=== PATIENT | female | born 1990 | race Caucasian/White ===

== ENCOUNTER 2017-02-25 12:36 | Emergency (ER) | payer MEDICAID ==
[2017-02-25 12:43] VITALS: BP 127/79; PULSE 99; RESP 16; TEMP 98.5; O2SAT 100
--- NOTE | 2017-02-25 13:19 | ED PDOC ---
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 Vaginal bleeding assoc with lower abd cramping since this AM. LMP 01/30/2017. . No care yet for this .) Onset/Duration Of Symptoms: Days (1) Current Symptoms Are (Timing): Still Present Severity: Mild Quality Of Discomfort: Cramping Abnormal Vaginal Bleeding: Yes Past Medical History Vital Signs: Last Vital Signs Temp 98.5 F 02/25/17 12:40 Pulse 99 H 02/25/17 12:40 Resp 16 02/25/17 12:40 BP 127/79 02/25/17 12:40 Pulse Ox 100 02/25/17 12:40 - Medical History PMH: No Chronic Diseases - Family History Family History: States: Unknown Family Hx - Allergies Allergies/Adverse Reactions: Allergies Allergy/AdvReac Type Severity Reaction Status Date / Time No Known Allergies Allergy Verified 02/25/17 12:40 Review of Systems Gastrointestinal: Positive for: Abdominal Pain Genitourinary Female: Positive for: Vaginal Bleeding Musculoskeletal: Negative for: Back Pain Physical Exam - Physical Exam Appears: Positive for: Non-toxic, No Acute Distress Skin: Positive for: Normal Color, Warm, DRY Gastrointestinal/Abdominal: Positive for: Bowel Sounds, Soft. Negative for: Tenderness Pelvic Exam: Positive for: External Exam Normal, No Masses, Blood (Small amount of blood in vault. Cervix closed), Other ([facility] nurse [place]). Negative for : Tender Adnexa, Tender Uterus Extremity: Positive for: Normal ROM - Laboratory Results Result Diagrams: 02/25/17 13:39 02/25/17 13:39 - ECG O2 Sat by Pulse Oximetry: 100 Disposition - Clinical Impression Clinical Impression: Miscarriage - Patient ED Disposition Is Patient to be Admitted: No Comment: Results US and blood work and discharge instructions provided via chief of hospital medicine [id number] Counseled Patient/Family Regarding: Studies Performed, Diagnosis, Need For Followup, Rx Given - Disposition [facility] Disposition: Routine/Home Disposition Time: 15:05 Condition: FAIR Instructions: Threatened Miscarriage (ED) Forms: [facility] in [facility] (Irish)
[2017-02-25 13:47] LABS: BASO % 0.3 % (0.0-2.0); EOS % 0.6 % (0.0-4.0); HEMATOCRIT 39.1 % (34.0-47.0); LYMPH # 1.2 K/uL (1.0-4.3); LYMPH % 18.8 % (20.0-40.0); MEAN CELL VOLUME 87.4 fl (81.0-99.0); MEAN CORPUSCULAR HEMOGLOBIN 29.3 pg (27.0-31.0); MEAN CORPUSCULAR HGB CONC 33.5 g/dL (33.0-37.0); MEAN PLATELET VOLUME 8.1 fl (7.2-11.7); MONO # 0.5 K/uL (0.0-0.8); MONO % 8.6 % (0.0-10.0); NEUT # 4.6 K/uL (1.8-7.0); NEUT % 71.7 % (50.0-75.0); RED CELL DISTRIBUTION WIDTH 13.8 % (11.5-14.5); WHITE BLOOD COUNT 6.4 K/uL (4.8-10.8)
[2017-02-25 13:53] LABS: ALKALINE PHOSPHATASE 40 U/L (38-126); ALT/SGPT 34 U/L (9-52); AST/SGOT 19 U/L (14-36); BILIRUBIN,TOTAL 0.4 mg/dl (0.2-1.3); BLOOD UREA NITROGEN 7 mg/dl (7-17); CALCIUM 9.3 mg/dL (8.4-10.2); CARBON DIOXIDE 25 mmol/L (22-30); CHLORIDE 104 mmol/L (98-107); GFR AFRICAN-AMERICAN > 60; GLUCOSE,RANDOM 102 mg/dL (65-105); SODIUM 143 mmol/l (132-148); TOTAL PROTEIN 8.3 G/DL (6.3-8.2)
[2017-02-25 13:55] LABS: ALB/GLOB RATIO 1.4 (1.0-2.1)
--- NOTE | 2017-02-25 14:53 | US ---
HISTORY: r/o ectopic COMPARISON: None available. TECHNIQUE: Transvaginal FINDINGS: UTERUS: Measures 7.3 x 4.8 x 4.8 cm. Normal in size and appearance. 6 mm posterior myometrial cyst incidentally noted. ENDOMETRIUM: Measures 9 mm in diameter. Small amount of moderately echogenic fluid seen within the endometrial cavity. Consistent with known current vaginal bleeding. No intrauterine gestation identified. CERVIX: No cervical abnormality identified. RIGHT OVARY: Measures 2.1 x 2.2 x 1.8 cm. No solid mass. Normal flow. LEFT OVARY: Measures 3.0 x 3.0 x 1.7 cm. No solid mass. Normal flow. FREE FLUID: Trace fluid in cul-de-sac OTHER FINDINGS: None. IMPRESSION: No intrauterine gestation. Probable small amount of endometrial blood. Consistent with current vaginal bleeding. No evidence of ectopic gestation. However, ectopic cannot be excluded on the basis of this examination in the absence of an intrauterine gestation. Please follow-up with serial beta HCG evaluation.
== END 2017-02-25 18:42 | disposition home or self-care (01) ==
LOC: H.ER 12:36
DX: O03.9 Complete or unspecified spontaneous abortion without complication (principal)

== ENCOUNTER 2017-05-29 23:25 | Emergency (ER) | payer MEDICAID ==
[2017-05-29 23:43] VITALS: TEMP 97.7; O2SAT 100
[2017-05-30 00:50] LABS: SQUAMOUS EPITHIAL 3 /hpf (0-5); URINE BACTERIA RARE (<OCC); URINE BILIRUBIN NEGATIVE (NEGATIVE); URINE BLOOD NEGATIVE (NEGATIVE); URINE CLARITY CLEAR (Clear); URINE COLOR COLORLESS (YELLOW); URINE GLUCOSE (UA) NEG (Normal); URINE LEUKOCYTE ESTERASE NEG Leu/uL (Negative); URINE PROTEIN NEGATIVE (NEGATIVE); URINE UROBILINOGEN 0.2-1.0 mg/dL (0.2-1.0)
--- NOTE | 2017-05-30 03:22 | US ---
EXAM: US , Transvaginal CLINICAL HISTORY: 26 years old, female; Pain; complicated by abdominal or pelvic pain; Gestational age or lmp: 03/26/2017; ; Additional info: 12 wks , abd pain TECHNIQUE: Real-time transvaginal obstetrical ultrasound of the maternal pelvis and a first trimester with image documentation. Transvaginal imaging was used for better evaluation of the fetus and adnexa. 2 Real time cine loop images are submitted.Grayscale, color and spectral pulse Doppler images are submitted.A duplex/doppler ultrasound was performed specifically BOTH COLOR FLOW AND spectral Doppler analysis (waveforms) were performed and interpreted. COMPARISON: No relevant prior studies available. FINDINGS: Gestation: There is single intrauterine gestational sac with presence of yolk sac, pole No heart motion. The yolk sac measures 0.56 cm. Estimated gestational age calculated from [place] rump length is estimated to be 7 weeks 5 days and from mean sac diameter is estimated to be 6 weeks 3 days. Uterus/cervix: The cervix is closed. Ovaries: The right ovary measures 2.7 x 1.3 x 2.3 cm. The left ovary measures 3.3 x 1.9 x 2.5 cm. Duplex assessment demonstrates presence of color Doppler signal and spectral Doppler waveform in right ovary. Duplex assessment demonstrates presence of color Doppler signal and spectral Doppler waveform in left ovary. No mass. Free fluid: No free fluid. IMPRESSION: Intrauterine IUP without heart motion representing demise. CRIBBER evaluation is recommended.
--- NOTE | 2017-05-30 03:53 | ED PDOC ---
HPI: Abdomen Time Seen by Provider: 05/29/17 23:44 Chief Complaint (Nursing): Abdominal Pain Chief Complaint (Provider): Lower abdominal pain History Per: Patient History/Exam Limitations: no limitations Onset/Duration Of Symptoms: Days Current Symptoms Are (Timing): Still Present Associated Symptoms: Back Pain. 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 Patient reports receiving care and having a confirmed IUP through US. She denies any vaginal bleeding, fevers, nausea, vomiting, diarrhea, or urinary symptoms. She offers no other complaints at this time. PMD: [facility] Provider - Sita Goode Past Medical History Reviewed: Historical Data, Nursing Documentation, Vital Signs Vital Signs: Last Vital Signs Temp 97.7 F 05/29/17 23:36 Pulse 86 05/30/17 04:12 Resp 20 05/30/17 04:12 BP 114/65 05/30/17 04:12 Pulse Ox 100 05/30/17 04:12 - Medical History PMH: No Chronic Diseases Denies: Chronic Kidney Disease - Family History Family History: States: Unknown Family Hx - Immunization History Hx Tetanus Toxoid Vaccination: No Hx Influenza Vaccination: No Hx Pneumococcal Vaccination: No - Allergies Allergies/Adverse Reactions: Allergies Allergy/AdvReac Type Severity Reaction Status Date / Time No Known Allergies Allergy Verified 02/25/17 12:40 Review of Systems ROS Statement: Except As Marked, All Systems Reviewed And Found Negative Constitutional: Negative for: Fever Gastrointestinal: Positive for: Abdominal Pain (lower). Negative for: Nausea, Vomiting, Diarrhea Genitourinary Female: Negative for: Incontinence, Vaginal Bleeding Musculoskeletal: Positive for: Back Pain Physical Exam - Reviewed Nursing Documentation Reviewed: Yes Vital Signs Reviewed: Yes - Physical Exam Comments: GENERAL APPEARANCE: Patient is awake, alert, oriented x 3, in no acute distress SKIN: Warm, dry; (-) cyanosis. EYES: (-) conjunctival pallor, (-) scleral icterus. ENMT: Mucous membranes moist. NECK: (-) tenderness, (-) stiffness, (-) lymphadenopathy. CHEST AND RESPIRATORY: (-) rales, (-) rhonchi, (-) wheezes; breath sounds equal bilaterally. HEART AND CARDIOVASCULAR: (-) irregularity; (-) murmur, (-) gallop. ABDOMEN AND GI: (-) distention. Bowel sounds active; (-) tenderness. (-) guarding, (-) rebound, (-) palpable masses, (-) CVA tenderness. EXTREMITIES: (-) deformity, (-) edema, (+) distal pulses. NEURO AND PSYCH: Mental status as above; (-) focal findings. - ECG O2 Sat by Pulse Oximetry: 100 (RA) Pulse Ox Interpretation: Normal Medical Decision Making Medical Decision Making: Time: 00:40 Plan: --Urine Culture --US Transvaginal --Urinalysis --Beta-HCG UA: (-) Beta quant : 7,805 US , Transvaginal : FINDINGS: Gestation: There is single intrauterine gestational sac with presence of yolk sac, pole No heart motion. The yolk sac measures 0.56 cm. Estimated gestational age calculated from [place] rump length is estimated to be 7 weeks 5 days and from mean sac diameter is estimated to be 6 weeks 3 days. Uterus/cervix: The cervix is closed. Ovaries: The right ovary measures 2.7 x 1.3 x 2.3 cm. The left ovary measures 3.3 x 1.9 x 2.5 cm. Duplex assessment demonstrates presence of color Doppler signal and spectral Doppler waveform in right ovary. Duplex assessment demonstrates presence of color Doppler signal and spectral Doppler waveform in left ovary. No mass. Free fluid: No free fluid. IMPRESSION: Intrauterine IUP without heart motion representing demise. [employer] evaluation is recommended. On re-evaluation, patient reports no increase in pain and no vaginal bleeding. On exam, patient remains AAOx3, in no acute distress. Abdomen remains soft, non- tender. Lab and US results reviewed with the patient and her . Diagnosis of threatened miscarriage d/w the patient and her . Based on history, exam and diagnostic results, plan will be for outpatient follow up with her DIRECTOR OF [employer] in [place]. Patient instructed to follow-up with her service secretary in 1-2 days without fail. Return to the emergency room at any time for any new or worsening symptoms. Patient states she fully agrees with and understands discharge instructions. States that she agrees with the plan and disposition. Verbalized and repeated discharge instructions and plan. I have given the patient opportunity to ask any additional questions. Scribe Attestation: Documented by Nadia Barney, acting as a scribe for Divya Hester PA-C. Provider Scribe Attestation: All medical record entries made by the Scribe were at my direction and personally dictated by me. I have reviewed the chart and agree that the record accurately reflects my personal performance of the history, physical exam, medical decision making, and the department course for this patient. I have also personally directed, reviewed, and agree with the discharge instructions and disposition. Disposition - Clinical Impression Clinical Impression: Threatened miscarriage - Patient ED Disposition Is Patient to be Admitted: No Counseled Patient/Family Regarding: Studies Performed, Diagnosis, Need For Followup - Disposition Disposition: Routine/Home Disposition Time: 04:00 Condition: STABLE Additional Instructions: Thank you for letting us take care of you today. You were treated for threatened miscarriage. The emergency medical care you received today was directed at your acute symptoms. Return to the Emergency Department if your symptoms worsen, do not improve, or if you have any other problems. Please contact your OB doctor in 2 days for re-evaluation and follow up. Bring any paperwork you were given at discharge with you along with any medications you are taking to your follow up visit. Our treatment cannot replace ongoing medical care by a primary care provider (PCP) outside of the emergency department. Thank you for allowing the [facility] team to be part of your care today. Instructions: Threatened Miscarriage Forms: [facility] (Hungarian), [facility] ED School/Work Excuse
[2017-05-30 04:32] VITALS: BP 114/65; PULSE 86; RESP 20
== END 2017-05-30 04:12 | disposition home or self-care (01) ==
LOC: H.ER 23:25
DX: O20.0 Threatened abortion (principal); Z3A.12 12 weeks gestation of pregnancy

== ENCOUNTER 2017-11-20 00:53 | Emergency (ER) | payer MEDICAID ==
[2017-11-20 01:53] VITALS: RESP 18; TEMP 98; O2SAT 100
[2017-11-20 03:18] LABS: BASO % 0.3 % (0.0-2.0); EOS # 0.1 K/uL (0.0-0.7); EOS % 0.9 % (0.0-4.0); HEMOGLOBIN 12.8 g/dL (12.0-16.0); LYMPH % 34.6 % (20.0-40.0); MEAN CELL VOLUME 86.1 fl (81.0-99.0); MEAN CORPUSCULAR HEMOGLOBIN 30.1 pg (27.0-31.0); MONO # 0.7 K/uL (0.0-0.8); MONO % 11.3 % (0.0-10.0); NEUT % 52.9 % (50.0-75.0); RBC 4.26 Mil/uL (3.80-5.20); RED CELL DISTRIBUTION WIDTH 12.8 % (11.5-14.5); WHITE BLOOD COUNT 5.8 K/uL (4.8-10.8)
[2017-11-20 03:25] LABS: SQUAMOUS EPITHIAL 15 /hpf (0-5); URINE BACTERIA MANY (<OCC); URINE BILIRUBIN NEGATIVE (NEGATIVE); URINE BLOOD SMALL (NEGATIVE); URINE CLARITY CLOUDY (Clear); URINE COLOR STRAW (YELLOW); URINE GLUCOSE (UA) NEG (Normal); URINE LEUKOCYTE ESTERASE TRACE Leu/uL (Negative); URINE PROTEIN NEGATIVE (NEGATIVE); URINE UROBILINOGEN 0.2-1.0 mg/dL (0.2-1.0)
[2017-11-20 03:26] LABS: ALB/GLOB RATIO 1.4 (1.0-2.1); ALBUMIN 4.6 g/dL (3.5-5.0); ALT/SGPT 68 U/L (9-52); AST/SGOT 48 U/L (14-36); BLOOD UREA NITROGEN 8 mg/dl (7-17); CALCIUM 9.3 mg/dL (8.4-10.2); GFR NON-AFRICAN AMERICAN > 60
--- NOTE | 2017-11-20 04:18 | ED PDOC ---
HPI: Abdomen Time Seen by Provider: 11/20/17 02:28 Chief Complaint (Nursing): Female Genitourinary Chief Complaint (Provider): Pelvic Pain History Per: Patient History/Exam Limitations: no limitations Onset/Duration Of Symptoms: Days (x1) Current Symptoms Are (Timing): Still Present Additional Complaint(s): 27 year old female presents to the ED for evaluation of bilateral pelvic pain since yesterday afternoon. She reports being approx. 5 weeks , receiving care from Dr. Dias. States she started Lovenox this week. Otherwise, denies vaginal bleeding, dysuria, hematuria, fever, nausea, and vomiting. 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 PMD: Dr. Dias Past Medical History Reviewed: Historical Data, Nursing Documentation, Vital Signs Vital Signs: Last Vital Signs Temp 98.0 F 11/20/17 01:48 Pulse 80 11/20/17 01:48 Resp 18 11/20/17 01:48 BP 134/85 11/20/17 01:48 Pulse Ox 100 11/20/17 05:34 - Medical History PMH: Denies: Chronic Kidney Disease - Surgical History Surgical History: Appendectomy - Family History Family History: States: Unknown Family Hx - Social History Current smoker - smoking cessation education provided: No Alcohol: None Drugs: Denies - Immunization History Hx Tetanus Toxoid Vaccination: No Hx Influenza Vaccination: No Hx Pneumococcal Vaccination: No - Home Medications Home Medications: Ambulatory Orders Medication Instructions Recorded Cephalexin [Keflex] 500 mg PO BID #14 capsule 06/01/17 Nitrofurantoin Macrocrystals 100 mg PO BID #14 cap 11/20/17 [Macrobid] - Allergies Allergies/Adverse Reactions: Allergies Allergy/AdvReac Type Severity Reaction Status Date / Time No Known Allergies Allergy Verified 11/20/17 01:46 Review of Systems ROS Statement: Except As Marked, All Systems Reviewed And Found Negative Constitutional: Negative for: Fever Gastrointestinal: Positive for: Abdominal Pain (bilateral pelvic). Negative for : Nausea, Vomiting Genitourinary Female: Negative for: Dysuria, Hematuria, Vaginal Bleeding Physical Exam - Reviewed Nursing Documentation Reviewed: Yes Vital Signs Reviewed: Yes - Physical Exam Appears: Positive for: Well, Non-toxic, No Acute Distress Skin: Positive for: Normal Color, Warm, Dry Eye Exam: Positive for: Normal appearance Cardiovascular/Chest: Positive for: Regular Rate, Rhythm Respiratory: Positive for: Normal Breath Sounds. Negative for: Accessory Muscle Use, Respiratory Distress Gastrointestinal/Abdominal: Positive for: Tenderness (suprapubic), Other (old healed scar to RLQ) Back: Positive for: Normal Inspection. Negative for: L CVA Tenderness, R CVA Tenderness Neurologic/Psych: Positive for: Alert, Oriented (x3) - Laboratory Results Result Diagrams: 11/20/17 03:14 11/20/17 03:14 - ECG O2 Sat by Pulse Oximetry: 100 (RA) Pulse Ox Interpretation: Normal - Progress ED Course And Treament: TVUS: No acute findings. IUP as described. On re-evaluation, pt. in no distress. Informed of results and advised to f/u with their OBGYN and to continue previously prescribed meds and to start macrobid today. Medical Decision Making Medical Decision Making: Time: 256 Initial Impression: pelvic pain in Initial Plan: --Beta-HCG quant --CMP --Urine --CBC with differential --Urine culture --Urinalysis --US OB transvaginal Scribe Attestation: Documented by Afua Redding, acting as a scribe for Ravi Solares PA-C. Provider Scribe Attestation: All medical record entries made by the Scribe were at my direction and personally dictated by me. I have reviewed the chart and agree that the record accurately reflects my personal performance of the history, physical exam, medical decision making, and the department course for this patient. I have also personally directed, reviewed, and agree with the discharge instructions and disposition. Disposition - Clinical Impression Clinical Impression: , UTI (urinary tract infection) - Patient ED Disposition Is Patient to be Admitted: No - Disposition Disposition: Routine/Home Disposition Time: 05:05 Condition: STABLE Additional Instructions: FOLLOW UP WITH YOUR OBGYN FOR FURTHER EVALUATION CARLIN RO, thank you for letting us take care of you today. Your provider was Sabas Pena MD and you were treated for 5 WEEKS PREG; ABD PAIN. The emergency medical care you received today was directed at your acute symptoms. If you were prescribed any medication, please fill it and take as directed. It may take several days for your symptoms to resolve. Return to the Emergency Department if your symptoms worsen, do not improve, or if you have any other problems. Please contact your doctor or call one of the physicians/clinics you have been referred to that are listed on the Patient Visit Information form that is included in your discharge packet. Bring any paperwork you were given at discharge with you along with any medications you are taking to your follow up visit. Our treatment cannot replace ongoing medical care by a primary care provider outside of the emergency department. Thank you for allowing the [facility] team to be part of your care today. If you had an X-Ray or CT scan: A Radiologist will review the ED reading if any change in treatment is needed we will contact you. If you had a blood, urine, or wound culture: It will take several days for the results, if any change in treatment is needed we will contact you. If you had an STI test: It will take 48 hours for the results. Please call after 1 week if you have not heard back. Prescriptions: Nitrofurantoin Macrocrystals [Macrobid] 100 mg PO BID #14 cap Instructions: Care Forms: [facility] (Azerbaijani) Print Language: GRENADIAN
[2017-11-20 05:46] VITALS: BP 128/68; PULSE 81
--- NOTE | 2017-11-20 08:22 | US ---
Date of service: 11/20/2017 PROCEDURE: HISTORY: pelvic pain COMPARISON: TECHNIQUE: FINDINGS: Intrauterine gestational sac measuring 17 millimeters corresponding to 6 weeks gestational age along with a 4 millimeter pole corresponding to 6 weeks intrauterine gestation. heart motion identified. Left-sided corpus luteum. IMPRESSION: As above.
== END 2017-11-20 05:40 | disposition home or self-care (01) ==
LOC: H.ER 00:53
DX: O23.40 Unspecified infection of urinary tract in pregnancy, unspecified trimester (principal)